=== PATIENT | male | born 1995 | race Caucasian/White ===

== ENCOUNTER 2017-10-12 13:11 | Emergency (ER) | payer OTHER ==
--- NOTE | 2017-10-12 13:31 | UC ---
Dental HPI - HPI Summary HPI Summary: 21 y/o male presents to the urgent care c/o RT upper and lower molar pain for the past 2 days. Pt reports he had a procedure done on that molar about 1 month ago and was x Amoxicillin. then he realized they only cleaned his teeth and didn't extracted his Rt upper molar which is fracture. About 2 days ago dental pain returned. Pain is 10/10 today w/ swelling and HARRISON. Pt has taking Tylenol PO w/o any relief. Pt denies fever, trismus, SOB, chest pain, abdominal pain, N/v/D. Pt is UTD w/ all vaccines for his age. - History of Current Complaint Chief Complaint: UCDentalProblem Stated Complaint: DENTAL PAIN Time Seen by Provider: 10/12/17 13:30 Hx Obtained From: Patient Onset/Duration: Gradual Onset, Lasting Days - 2 days, Still Present, Worse Since - today Severity: Moderate Pain Intensity: 8 Pain Scale Used: 0-10 Numeric Aggravating Factor(s): Cold Alleviating Factor(s): OTC Meds - tylenol PO Related History: Previous Dental Care on Same Tooth - molar 4 - Allergies/Home Medications Allergies/Adverse Reactions: Allergies Allergy/AdvReac Type Severity Reaction Status Date / Time No Known Allergies Allergy Verified 10/12/17 13:26 PMH/Surg Hx/FS Hx/Imm Hx Previously Healthy: Yes - Pt denies PMHX - Surgical History Surgical History: None - Family History Known Family History: Positive: Cardiac Disease, Hypertension, Diabetes - Social History Occupation: Employed Full-time Lives: With Family Alcohol Use: None Substance Use Type: None Smoking Status (MU): Never Smoked Tobacco - Immunization History Vaccination Up to Date: Yes Review of Systems Constitutional: Negative Skin: Negative Eyes: Negative - o shows ENT: Dental Pain - Rt upper jaw w/ swelling and fracture molar Respiratory: Negative Cardiovascular: Negative Gastrointestinal: Negative Genitourinary: Negative Motor: Negative Neurovascular: Negative Musculoskeletal: Negative Neurological: Headache Psychological: Negative Is Patient Immunocompromised?: No All Other Systems Reviewed And Are Negative: Yes Physical Exam - Summary Physical Exam Summary: Vital Signs Reviewed: Yes General: well developed. well nourished male adolescent sitting in the examining table w/o any apparent distress Eyes: Positive: Conjunctiva Clear - PERRLA, EOMI, fundi grossly normal ENT: Positive: Normal ENT inspection, Hearing grossly normal, Pharyngeal erythema, TMs normal, Uvula midline. Negative: Tonsillar swelling, Tonsillar exudate, Trismus Dental: Positive: Percussion Tenderness @ - molar 4 and 19, Gross Decay/Caries w / fracture molar @ - molar 4, Abscess @ - molar 4, w/ swelling .- B/L anterior, Cervical Lymphadenopathy . Neck: Positive: Supple, Nontender Respiratory: Positive: Chest non-tender, Lungs clear, Normal breath sounds, No respiratory distress Cardiovascular: Positive: RRR, No Murmur, Pulses Normal, Brisk Capillary Refill Abdomen Description: Positive: Nontender, No Organomegaly, Soft. Negative: CVA Tenderness (R), CVA Tenderness (L) Bowel Sounds: Positive: Present Musculoskeletal: Positive: Strength Intact, ROM Intact, No Edema Neurological Exam: Normal Psychological Exam: Normal Skin Exam: Normal Triage Information Reviewed: Yes Vital Signs: Initial Vital Signs Temp 98.5 F 10/12/17 13:24 Pulse 86 10/12/17 13:24 Resp 12 10/12/17 13:24 BP 127/87 10/12/17 13:24 Pulse Ox 98 10/12/17 13:24 Dental Complaint Course/Dx - Course Course Of Treatment: 21 y/o male presents to the urgent care c/o RT upper and lower molar pain for the past 2 days. Pt reports he had a procedure done on that molar about 1 month ago and was x Amoxicillin. then he realized they only cleaned his teeth and didn't extracted his Rt upper molar which is fracture. About 2 days ago dental pain returned. Pain is 10/10 today w/ swelling and HARRISON. Pt has taking Tylenol PO w/o any relief. Pt denies fever, trismus, SOB, chest pain, abdominal pain, N/v/D. Pt is UTD w/ all vaccines for his age. Hx obtained. Pt w/ Percussion Tenderness @ - molar 4 and 19, Gross Decay/Caries w / fracture molar @ - molar 4, Abscess @ - molar 4, w/ swelling .- B/L anterior, Cervical Lymphadenopathy on examination. Pt with dental abscess on examination. Pt given viscous Lidocaine and Ibuprofen PO at the clinic to alleviate symptoms. Pt Rx cindamycin PO and Ibuprofen PO for pain. Pt strongly advised to f/u with his Dentist as soon as possible further evaluation and treatment. Pt understood and agreed with plan of care. Left the clinic ambulating. - Differential Dx/Diagnosis Differential Diagnosis/Dx: Dental Abscess, Dental Caries, Fractured Tooth, Peridontic Disease, Peritonsillar Abcess Provider Diagnoses: 1 Dental abscess w/ gross decay an fracture on molar 4. 2 Gross decay molar 31. 3 Dental pain Discharge - Sign-Out/Discharge Documenting (check all that apply): Patient Departure - D/c home - Discharge Plan Condition: Stable Disposition: HOME Prescriptions: Clindamycin Cap(NF) [Clindamycin Cap 300 mg Cap(NF)] 300 mg PO TID #30 cap Ibuprofen TAB* [Motrin TAB* 600 MG] 600 mg PO Q6H PRN #30 tab PRN Reason: Pain Patient Education Materials: Dental Abscess (ED) Referrals: [facility] [place] [facility] [Outside] - 3 Days Additional Instructions: 1-Please take full course of antibiotic to avoid resistance. 2- Take Ibuprofen PO q8hrs as instructed after meals to alleviate pain and swelling. apply viscous Lidocaine as directed to alleviate pain 3- F/u with your Dentist or Dental List provided as soon as possible for further treatment. 4- If symptoms do not improve or worsen please return to the urgent care or f/u with your PCP for further evaluation and treatment - Billing Disposition and Condition Condition: STABLE Disposition: Home
[2017-10-12] MEDS ORDERED: Ibuprofen TAB* 600 MG PO ONE (13:51)
[2017-10-12] MEDS ORDERED: Lidocaine 2% VISCOUS* 15 ML UDC SWISH SPIT ONE (13:52)
== END 2017-10-12 14:06 | disposition home or self-care (01) ==
LOC: UCEAST 13:11
DX: K04.7 Periapical abscess without sinus (principal); K03.81 Cracked tooth; K02.9 Dental caries, unspecified; Z82.49 Family history of ischemic heart disease and other diseases of the circulatory system; Z83.3 Family history of diabetes mellitus
CPT/HCPCS: 99203; A9270-GY; G0463